=== PATIENT | male | born 1995 | race Caucasian/White ===

== ENCOUNTER 2021-11-11 12:41 | Day surgery (SDC) | payer BC, SELFPAY ==
[2021-11-11 13:05] VITALS: BP 124/76; PULSE 62; RESP 16; TEMP 36.4; O2SAT 100; BMI 27.8
[2021-11-11] MEDS: Lactated Ringers 1,000 ML 15 ML IV (13:05)
--- NOTE | 2021-11-11 14:15 | RAD_ITS ---
STUDY: INTRAOPERATIVE FLUOROSCOPY TECHNIQUE: The examination was performed with referring physician in attendance. Under fluoroscopic observation, fluoroscopic images were obtained. Radiologist was not present for the study. Radiologist did not perform the procedure. This dictation is for documentation of the radiation dosage only. There is no interpretation of the images. TOTAL NUMBER OF IMAGES: 1 COMPARISON: None RADIATION DOSE: .49 mGy FLUOROSCOPY TIME: 23.7 seconds REASON FOR EXAM: FX RT 2ND METACARPAL Male, 25 years old. FINDINGS: Screw seen transfixing the second metacarpal fracture. There is anatomic alignment. RAD/Hand 2 Views IMPRESSION: Fluoroscopic assistance images were obtained. Dictation for documentation purposes only. Electronically Signed: Stefano Tomas MD at 15:41 EST ,
[2021-11-11 15:47] VITALS: BP 124/76; BP 143/106; PULSE 79; RESP 16; TEMP 36.8; O2SAT 100
--- NOTE | 2021-11-11 15:59 | PCM.DC ---
Discharge Instructions Follow Up Care Test Results: Test results from this visit will be discussed in further detail at your follow-up appointment, if applicable. Discharge Plan Admission Attending Provider: Malcolm Mcdonough Primary Care Provider: Care Physician,No Primary Instructions Additional Instructions / Restrictions: Weightbearing less than 2 pounds to operative extremity Okay to remove dressing on 11/13/2021 and shower Cover with a Band-Aid until no drainage is noted, then okay to leave open to air Ice and elevate Encourage range of motion of the fingers Follow-up in [address] Mcdonough as previously scheduled Discharge Orders/Prescriptions Prescriptions: No Action multivitamin Tablet 1 tab PO DAILY RF: 0 oxycodone-acetaminophen 5-325 mg tablet 1 - 2 tab PO Q6H PRN PRN (Reason: Pain) RF: 0 Referrals / Follow Up: Malcolm Mcdonough DO [STAFF PHYSICIAN] - In 1 Week Care Physician,No Primary [Primary Care Provider] - Disposition Disposition (needs filled in before D/C Order can be placed): Home, Self Care
[2021-11-11 16:00] VITALS: BP 124/76; BP 126/79; PULSE 76; RESP 16; O2SAT 100
--- NOTE | 2021-11-11 16:00 | OP.PCM_ITS ---
Report of Operation Date of Procedure: 11/11/21 Description of Surgical Findings:: Preoperative diagnosis: Right closed displaced midshaft second metacarpal transverse fracture Postoperative diagnosis: Right closed displaced midshaft second metacarpal transverse fracture Procedure: Closed reduction with percutaneous screw fixation right second metacarpal shaft fracture Surgeon: Malcolm Mcdonough DO [employer] Supervisor: None Anesthesia: General LMA Anesthesiologist: Dr. Marie / Peter Monroe CRNA Complications: None apparent Drains: None Estimated blood loss: 5 cc Urinary output: None IV fluids: Per anesthesia record Specimens: None Surgical implants: Arthrex 3.5 mm FT variable pitch compression screw 52 mm length Indications: This is an otherwise healthy 25-year-old male who sustained a right hand injury while working on a pipe at his house. The pipe fell onto his right hand causing a crush injury to the second metacarpal. He was seen at [facility] approximately 5 days ago where x-rays revealed a fracture to the second metacarpal. The fracture was transverse and significantly translated. He was seen by my partner Dr. Armando Adair yesterday in the office. Dr. Adair asked if I would take on the patient's case. I recommended operative intervention in the form of right second metacarpal shaft percutaneous screw fixation versus open reduction internal fixation. The risk, benefits, alternatives of procedure reviewed with the patient at length and he agreed to proceed. The patient was seen and evaluated at length in the preoperative holding area the day of surgery. Description of procedure: Patient was seen and examined the preoperative holding area. The operative extremity was marked after informed consent was confirmed with the patient. All questions were answered to patient satisfaction. At time of his procedure, patient was brought to the operative suite and positioned supine a standard operating table. General anesthesia was induced and laryngeal mask airway placed. All bony prominences were well-padded. A hand table was attached to patient's right side. A well-padded pneumatic tourniquet was applied to the right upper arm. We spun the bed 90 degrees. We then prepped and draped the right hand in a normal, sterile orthopedic fashion. We then performed a timeout with all parties in attendance in agreement with the side, site, operation be performed. 2 g Ancef was administered prior to incision by the anesthesia staff. No concerns voiced and elected to proceed. I first exsanguinated the right hand and wrist with a Esmarch bandage. Tourniquet was inflated to 250 mmHg. Esmarch was removed. I first brought in fluoroscopy to confirm that a close reduction could be obtained. This was achieved with manual manipulation. I then made a decision to proceed with percutaneous screw fixation. I made a curvilinear incision just ulnar to the extensor mechanism overlying the second metacarpal head. Approximately 3 cm curvilinear incision was made full-thickness flaps were developed. The extensor mechanism was identified. I identified the central portion of the extensor indicis pollicis tendon. I then identified the ulnar sagittal band. The sagittal band was split in line with the incision leaving a small cuff of tissue to for later repair. I also split the capsule of the metacarpophalangeal joint with the same incision. I then retracted the extensor tendon radially. This identified the metacarpal head. I placed a K wire through the metacarpal head cartilage near its dorsal portion. I then passed the K wire through the intramedullary canal of the second metacarpal into its base. I measured a length of 60 mm, settled on a screw length of 52 mm. Fracture was near-anatomic at this point. I then drilled per business rules analyst recommendation to a depth of 52 mm. Drill was removed. K wire was left in place. I then placed on hand a fully threaded variable pitch 3.5 millimeter screw from Arthrex. This achieved excellent cortical chatter near the isthmus of the bone. The tip of the screw bypassed the isthmus. Excellent compression was seen across the fracture site on fluoroscopy and the anatomic reduction of the fracture was noted. With approximately 4 thread still sitting proud from the chondral surface, I was unable to do further tighten the screw. I attempted to back out the screw which caused the screw head to stripped. Unable to further pass or back out the screw, I made the decision to use a bur to cut the head of the screw off in order to countersink it past the chondral surface. This was achieved with a duncan bur. Metal shards were debrided and the joint was thoroughly irrigated with normal saline solution. Tourniquet was then deflated and hemostasis was excellent. I repaired the sagittal band with 3-0 Ethibond suture in [id number] fashion. I then reapproximated the skin with interrupted horizontal mattress fashion 4-0 nylon suture. Sterile bulky soft dressing was applied. A field block with 10 cc 0.5% plain Marcaine was administered prior to dressing application. Patient tolerated procedure well. He was able to be extubated after anesthesia was reversed safely in the operative suite. He was transferred to his gurney and subsequently transported to PACU in stable condition. Postoperative plan: Weightbearing-less than 2 pounds to the operative hand. Encourage finger, wrist and hand range of motion. Dressing: Okay to remove on postoperative day #2 and shower. Keep covered with a Band-Aid until no drainage Pain medication: Narcotic prescription provided in the office yesterday Ice and elevation to the operative hand Follow-up with Dr. Mcdonough in 1 week with x-rays. I will likely initiate occupational therapy at that time for range of motion exercises.
[2021-11-11 16:15] VITALS: BP 124/76; BP 124/77; PULSE 73; RESP 16; TEMP 36.4; O2SAT 99
[2021-11-11] MEDS: Acetaminophen 325 MG Tablet 650 MG PO (16:29)
[2021-11-11] MEDS: oxyCODONE 5 MG Tablet 10 MG PO (16:30)
[2021-11-11 16:39] VITALS: BP 116/68; BP 124/76; PULSE 61; RESP 16; TEMP 36.3; O2SAT 99
== END 2021-11-11 23:59 | disposition home or self-care (01) ==
LOC: SDC 12:45 → AC 12:47
PROVIDERS: Referring Provider Student in an Organized Health Care Education/Training Program; Visit Provider Student in an Organized Health Care Education/Training Program
PROC: (CPT 26608; principal; 2021-11-11 14:00)
DX: S62.320A Displaced fracture of shaft of second metacarpal bone, right hand, initial encounter for closed fracture (principal); W23.0XXA Caught, crushed, jammed, or pinched between moving objects, initial encounter; Y93.9 Activity, unspecified; Y92.009 Unspecified place in unspecified non-institutional (private) residence as the place of occurrence of the external cause; E66.3 Overweight; Z68.28 Body mass index [BMI] 28.0-28.9, adult
CPT/HCPCS: 26608; 01820; 73120; 76000; 87426; C1713; J7120; J2405